=== PATIENT | male | born 1955 | race Caucasian/White ===

== ENCOUNTER → 2016-07-04 | Outpatient (CLI) | payer OTHER ==
[~2016-07-04] MED LIST: Iopamidol 755 MG/ML 500 ML Multipack Bottle IVPUSH STA
--- NOTE | 2016-07-04 12:55 | CT ---
CT of the abdomen and pelvis with contrast. HISTORY: General medical examination TECHNIQUE: Axial CT images were obtained of the abdomen and pelvis following administration of 100 m L of Isovue-370 in the right antecubital fossa without complication. Coronal and sagittal reconstruc tions obtained. FINDINGS: The lung bases are clear, no pleural effusion. Several cysts are noted within the liver. The spleen, adrenal glands, and pancreas appear normal. The adrenal glands and gallbladder appear normal. No bu lky retroperitoneal lymphadenopathy or abdominal ascites. A few borderline portacaval lymph nodes ar e noted. The kidneys enhance and function symmetrically without evidence of obstructive uropathy. Renal corti jenn cysts are noted. The large and small bowel are normal in caliber without evidence of obstruction. No focal pericoloni c inflammation or stranding. The appendix appears normal. The urinary bladder is mostly decompressed . The prostate is mildly prominent. There is a small to moderate fat-containing umbilical hernia. No suspicious osseous abnormalities identified. IMPRESSION: 1. No acute findings within the abdomen or pelvis. 2. Hepatic and renal cysts noted. 3. Small to moderate fat-containing umbilical hernia.
== END ==
LOC: MW.DI 07:33
PROVIDERS: ATTEND Surgery
DX: N28.1 Cyst of kidney, acquired (principal); K42.9 Umbilical hernia without obstruction or gangrene; K76.89 Other specified diseases of liver; Z00.00 Encounter for general adult medical examination without abnormal findings
CPT/HCPCS: 36415; 74177; 82565; Q9967

== ENCOUNTER 2016-07-06 12:00 | Day surgery (SDC) | payer OTHER ==
[~2016-07-06 12:00] MED LIST changes: -Iopamidol 755 MG/ML 500 ML Multipack Bottle IVPUSH STA; +Lactated Ringers 1,000 ML IV SCH
--- NOTE | 2016-07-06 13:04 | PCM.PREANE ---
Preanesthetic Assessment - ANESTHESIA/TRANSFUSION/FAMILY HX Anesthesia/Transfusion History: Prior Anesthesia Family History of Anesthesia Reaction: No - REVIEW OF SYSTEMS Constitutional: Reports: no symptoms LIFE MANAGER: Reports: no symptoms Respiratory: Reports: no symptoms Cardiovascular: Reports: no symptoms GI: Reports: no symptoms Other: Reports: none - PHYSICAL ASSESSMENT O2 Sat by Pulse Oximetry: 93 RR: 16 Vital Signs: Last Vital Signs Temp 36.6 C 07/06/16 12:49 Pulse 65 07/06/16 12:49 Resp 16 07/06/16 12:49 BP 141/67 H 07/06/16 12:49 Pulse Ox 93 L 07/06/16 12:49 Height: 1.83 m Weight: 119.748 kg ASA Class: 2 Mental Status: alert & oriented x3 Dentition: Reports: missing tooth/teeth ROM/Head Extension: full Respiratory Status: lungs clear to auscultation bilaterally Cardiovascular Status: regular rate & rhythm, normal S1, S2, no murmur - ALLERGIES Allergies/Adverse Reactions: Allergies Allergy/AdvReac Type Severity Reaction Status Date / Time No Known Allergies Allergy Verified 07/03/16 11:14 - BLOOD Blood Available: No - ANESTHESIA PLAN Preop Beta Tyrell: No Anesthesia Type Planned: MAC - ACKNOWLEDGEMENTS Pt an appropriate candidate for the planned anesthesia: Yes Alternatives and risks of anesthesia discussed w pt/guardian: Yes Pt/Guardian understands and agree with anesthesia plan: Yes PreAnesthesia Questionnaire Cardiovascular History: Reports: Hypertension Gastrointestinal History: Reports: Other (see below) Other Gastrointestinal History: occasional heartburn Other Musculoskeletal History: hx of leg, arm and collarbone bx in the past Endocrine/Metabolic History: Reports: Obesity/BMI 30+ Oncologic (Cancer) History: Reports: Basal cell carcinoma - Past Surgical History Head Surgeries/Procedures: Reports: None, Other (see below) (skin graft from forehead to nose, pedical flap created and then seperated) Dermatological Surgical History: Reports: Skin biopsy - SUBSTANCE USE Smoking Status *Q: Current Every Day Smoker Tobacco Use Within Last Twelve Months: Cigarettes Recreational Drug Use History: No - HOME MEDS Home Medications: Home Meds Fish Oil/[place]-3 Fatty Acids [Fish Oil 1,000 MG] 1,000 mg PO DAILY 07/03/16 [ History] Flaxseed Oil [Flaxseed] 1,000 mg PO DAILY 07/03/16 [History] Losartan Potassium 100 mg PO DAILY 07/03/16 [History] Multivitamin [Multivitamins] 1 tab PO DAILY 07/03/16 [History] Ubidecarenone [Co Q-10] 200 mg PO DAILY 07/03/16 [History] - CURRENT (IN HOUSE) MEDS Current Meds: Current Medications Lactated Ringer's (Ringers, Lactated) 1,000 mls @ 125 mls/hr IV ASDIRECTED [facility] Last Admin: 07/06/16 12:51 Dose: 125 mls/hr
[2016-07-06] MEDS ORDERED: Lidocaine 2% 5 ML SDV ONE (13:29)
[2016-07-06] MEDS ORDERED: Midazolam 1 MG/ML 2 ML SDV ONE (13:30)
[2016-07-06] MEDS ORDERED: Propofol 200 MG/20 ML SDV ONE (13:30)
[2016-07-06] MEDS ORDERED: fentaNYL 100 MCG/2 ML SDV ONE (13:30)
--- NOTE | 2016-07-06 14:30 | PCM.OPNOTE ---
- General Post-Op/Procedure Note Date of Surgery/Procedure: 07/06/16 Findings: see dict [id number] Pre Op Diagnosis: scrn colonoscopy Post-Op Diagnosis: colon polyp Anesthesia Technique: Moderate sedation Primary Surgeon: Augustin Flaherty Pathology: 2 mm sessile polyp at 35 cm when scope went out Complications: None Condition: Good
--- NOTE | 2016-07-06 14:46 | PCM.POSTAN ---
POST ANESTHESIA ASSESSMENT - MENTAL STATUS Mental Status: alert, oriented - VITAL SIGNS Pulse Rate: 60 SaO2: 95 Resp Rate: 16 Blood Pressure: 95/51 - RESPIRATORY Respiratory Status: respiratory rate WNL, airway patent, O2 saturation stable - CARDIOVASCULAR CV Status: pulse rate WNL, blood pressure stable - GASTROINTESTINAL GI Status: no symptoms - POST OP HYDRATION Hydration Status: adequate & stable
--- NOTE | 2016-07-06 15:28 | PCM48HPAN ---
Post Anesthesia Note - EVALUATION WITHIN 48HRS OF ANESTHETIC Vital Signs in Normal Range: Yes Patient Participated in Evaluation: Yes Respiratory Function Stable: Yes Airway Patent: Yes Cardiovascular Function Stable: Yes Hydration Status Stable: Yes Pain Control Satisfactory: Yes Nausea and Vomiting Control Satisfactory: Yes Mental Status Recovered: Yes
--- NOTE | 2016-07-06 22:04 | OR ---
SURGEON: Augustin Flaherty MD DATE OF PROCEDURE: 07/06/2016 PREOPERATIVE DIAGNOSIS: Screening colonoscopy. POSTOPERATIVE DIAGNOSIS: Colon polyp. PROCEDURE PERFORMED: Colonoscopy with biopsy. COMPLICATIONS: None. DESCRIPTION OF PROCEDURE: The patient was taken to the endoscopy room. A time out was called, patient identified, and procedure identified. Diprivan was then administrated. Patient went from awake to sleep, hearing doctor talking or door closing is normal. Perineum inspection and digital examination were then performed. A well- lubricated colonoscope was gently inserted through the rectum, advanced past the rectosigmoid junction, the descending colon, splenic flexure, transverse colon, hepatic flexure, ascending colon, arrived to the cecum. Cecum was identified as dictated in the finding. Then the scope was carefully withdrawn while attention was paid to the mucosal surface for any abnormality. Air will be sucked out during the scope withdrawal. At the rectum, retroflexed to examine any rectal diseases, fistula or hemorrhoids. During mucosal examination, abnormality or polyp was noted; picture taken and biopsy performed. Patient tolerated procedure well. There were no intraoperative complications, and Dr. Flaherty was present throughout the whole procedure. FINDINGS: 1. 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 The patient is soundly snoring. 2. The patient's bowel prep is average to good. Very little liquid stool. No semi-formed stool. 3. The patient's colon is rather straightforward. Cecum indicated by ileocecal fold, and one-to-one indentation, and appendiceal orifice. Light immittance is not observed. Mucosa examined upon scope pulling out. The patient does not have diverticulosis, mass, growth, inflammation stricture, AV malformation, blood or ulceration. The patient does have a very tiny 2 mm sessile polyp at distance 35 cm when the scope pulling out and was biopsied and removed. The patient also has moderate internal hemorrhoids. No external hemorrhoids. The patient would benefit from repeat colonoscopy 3 years from today or if clinically indicated otherwise or if the polyp pathology indicated otherwise. DIANA / JEANNINE /[id number]
== END 2016-07-06 15:20 | disposition home or self-care (01) ==
LOC: MW.SDS 12:00
PROVIDERS: ATTEND Surgery
PROC: 0DBE8ZZ Excision of Large Intestine, Via Natural or Artificial Opening Endoscopic (ICD-10-PCS; principal; 2016-07-06)
DX: Z12.11 Encounter for screening for malignant neoplasm of colon (principal); K63.5 Polyp of colon; K64.8 Other hemorrhoids; I10 Essential (primary) hypertension; F17.210 Nicotine dependence, cigarettes, uncomplicated; E66.9 Obesity, unspecified; Z85.828 Personal history of other malignant neoplasm of skin; Z79.899 Other long term (current) drug therapy; Z98.890 Other specified postprocedural states; Z68.35 Body mass index [BMI] 35.0-35.9, adult
CPT/HCPCS: 45380; 88305; J2250; J3010; J7120; J2704

== ENCOUNTER 2016-07-11 06:17 | Day surgery (SDC) | payer OTHER ==
--- NOTE | 2016-07-10 11:25 | PCM.PREANE ---
Preanesthetic Assessment - ANESTHESIA/TRANSFUSION/FAMILY HX Anesthesia/Transfusion History: Prior Anesthesia Family History of Anesthesia Reaction: No - REVIEW OF SYSTEMS Constitutional: Reports: no symptoms ASSESSMENT ANALYST: Reports: no symptoms Respiratory: Reports: no symptoms Cardiovascular: Reports: no symptoms GI: Reports: no symptoms - PHYSICAL ASSESSMENT Height: 1.83 m Weight: 119.748 kg ASA Class: 3 Mental Status: alert & oriented x3 Airway Class: Mallampati = 2 Dentition: Reports: normal dentition ROM/Head Extension: full Respiratory Status: lungs clear to auscultation bilaterally Cardiovascular Status: regular rate & rhythm, normal S1, S2, no murmur - ALLERGIES Allergies/Adverse Reactions: Allergies Allergy/AdvReac Type Severity Reaction Status Date / Time No Known Allergies Allergy Verified 07/03/16 11:14 - BLOOD Blood Available: No - ANESTHESIA PLAN Preop Beta Tyrell: No Beta-Tyrell Last Dose Date: 07/11/16 Beta-Tyrell Last Dose Time: 05:00 Anesthesia Type Planned: general anesthesia, MAC - ACKNOWLEDGEMENTS Pt an appropriate candidate for the planned anesthesia: Yes Alternatives and risks of anesthesia discussed w pt/guardian: Yes Pt/Guardian understands and agree with anesthesia plan: Yes PreAnesthesia Questionnaire Cardiovascular History: Reports: Hypertension Musculoskeletal History: Reports: Fracture Other Musculoskeletal History: hx of leg, arm and collarbone bx in the past Endocrine/Metabolic History: Reports: Obesity/BMI 30+ Oncologic (Cancer) History: Reports: Basal cell carcinoma - Past Surgical History Head Surgeries/Procedures: Reports: None GI Surgical History: Reports: Colonoscopy Dermatological Surgical History: Reports: Skin biopsy - SUBSTANCE USE Smoking Status *Q: Current Every Day Smoker Tobacco Use Within Last Twelve Months: Cigarettes Recreational Drug Use History: No - HOME MEDS Home Medications: Home Meds Fish Oil/[place]-3 Fatty Acids [Fish Oil 1,000 MG] 1,000 mg PO DAILY 07/03/16 [ History] Flaxseed Oil [Flaxseed] 1,000 mg PO DAILY 07/03/16 [History] Losartan Potassium 100 mg PO DAILY 07/03/16 [History] Multivitamin [Multivitamins] 1 tab PO DAILY 07/03/16 [History] Ubidecarenone [Co Q-10] 200 mg PO DAILY 07/03/16 [History]
[2016-07-11] MEDS ORDERED: Lactated Ringers 1,000 ML IV SCH (06:45)
[2016-07-11] MEDS ORDERED: Lidocaine 2% 5 ML SDV ONE (07:17)
[2016-07-11] MEDS ORDERED: Ketorolac 30 MG/ML SDV ONE ×2 (07:17→07:45)
[2016-07-11] MEDS ORDERED: Propofol 200 MG/20 ML SDV ONE (07:17)
[2016-07-11] MEDS ORDERED: Ondansetron 4 MG/2 ML SDV ONE (07:17)
[2016-07-11] MEDS ORDERED: Midazolam 1 MG/ML 2 ML SDV ONE (07:18)
[2016-07-11] MEDS ORDERED: fentaNYL 250 MCG/5 ML SDV ONE (07:18)
[2016-07-11] MEDS ORDERED: Bupivacaine 0.25%/EPINEPHrine 1:200,000 10 ML SDV ONE ×2 (07:19→08:40)
[2016-07-11] MEDS ORDERED: Octyl 2-Cyanoacrylate 1 Tube ONE (07:20)
[2016-07-11] MEDS ORDERED: ceFAZolin 2 GM in Premix Bag 1 BAG IV ONE (07:56)
[2016-07-11] MEDS ORDERED: Acetaminophen/oxyCODONE 325-10 MG Tab PO PRN (09:06)
--- NOTE | 2016-07-11 09:06 | PCM.OPNOTE ---
- General Post-Op/Procedure Note Date of Surgery/Procedure: 07/11/16 Operative Procedure(s): incarcerated umb hernia rep, no mesh used Findings: large hernia sac 5cm, with a neck of 1.5 cm, rep primarily, no mesh used; [id number] Pre Op Diagnosis: incarcerated umb hernia Post-Op Diagnosis: Same Anesthesia Technique: General ET tube Primary Surgeon: Augustin Flaherty Pathology: umb sac Complications: None Condition: Good
--- NOTE | 2016-07-11 09:32 | PCM.POSTAN ---
POST ANESTHESIA ASSESSMENT - MENTAL STATUS Mental Status: alert, oriented - RESPIRATORY Respiratory Status: respiratory rate WNL, airway patent, O2 saturation stable - CARDIOVASCULAR CV Status: pulse rate WNL, blood pressure stable - GASTROINTESTINAL GI Status: no symptoms - POST OP HYDRATION Hydration Status: adequate & stable
--- NOTE | 2016-07-11 09:47 | OR ---
SURGEON: Augustin Flaherty MD DATE OF PROCEDURE: 07/11/2016 PREOPERATIVE DIAGNOSIS: Incarcerated umbilical hernia. POSTOPERATIVE DIAGNOSIS: Incarcerated umbilical hernia. PROCEDURE PERFORMED: Open repair without using mesh. COMPLICATIONS: None. FINDINGS: Very large umbilical hernia sac about 5 cm and neck is 1.5 cm, closed primary without using mesh. DESCRIPTION OF PROCEDURE: The patient was brought to the operating room and placed in the supine position and upon the induction of general endotracheal anesthesia, the patient's abdomen was prepped and draped in sterile fashion. After assessment of appropriate landmarks, a surgical incision was made periumbilically which was then carefully dissected with blunt and sharp dissection surrounding the umbilical stalk. Hernia was entered and the fascial defect was noted, and the excess hernia sac was amputated. The facial edge was noted to be intact and the fascia was then grasped up with Allis clamps and then using 2-0 Ethibond, simple stitches were placed. After repair was finished and exploring the neighborhood, I failed to find any more hernia defect. This was followed with extensive irrigation and good hemostasis was achieved by using electrocautery. The umbilicus was then stitched down to recreate the umbilicus, and the skin was closed with 3-0 Vicryl subcutaneously followed with Dermabond approximating the skin. The patient was then awakened and extubated and transferred to the recovery room in good stable condition. Dr. Flaherty was present through the whole procedure. At the conclusion of the surgery, before closing the abdominal wound, instrument count and sponge count were done and were correct. Just before surgery, a timeout was called. The patient was identified and procedure identified and procedure started. DIANA / JEANNINE /[id number]
== END 2016-07-11 10:53 | disposition home or self-care (01) ==
LOC: MW.SDS 06:17
PROVIDERS: ATTEND Surgery
DX: K42.0 Umbilical hernia with obstruction, without gangrene (principal); Z79.899 Other long term (current) drug therapy
CPT/HCPCS: 49587; A9270; J1885; J2250; J2405; J3010; J7120; 00750; 88304; J2704